=== PATIENT | female | born 1960 | race Caucasian/White ===

== ENCOUNTER 2022-09-27 12:17 | Emergency (ER) | payer OTHER ==
[~2022-09-27] VITALS: Ht 162.6 cm; Wt 64.0 kg
[2022-09-27] MEDS ORDERED: SODIUM CHLORIDE 0.9% 1,000 ML IV ONE (13:15)
[2022-09-27] MEDS ORDERED: ASPIRIN 81MG TABLET PO ONE (13:15)
[2022-09-27] MEDS ORDERED: ASPIRIN 81MG TABLET PO SCH (14:00)
[2022-09-27 14:07] LABS: BASOPHILS % 0.4 % (0.0-2.0); EOSINOPHILS % 1.7 % (0.0-5.0); HEMATOCRIT. 31.6 % (36.0-48.0); HEMOGLOBIN. 10.8 g/dL (12.0-16.0); LYMPHOCYTES % 18.6 % (20.0-50.0); MEAN CORPUSCULAR HEMOGLOBIN 29.7 pg (28.0-32.0); MEAN CORPUSCULAR VOLUME 87.2 fL (81.0-99.0); MEAN PLATELET VOLUME 7.7 fl (7.4-10.4); MONOCYTES % 11.9 % (2.0-8.0); NEUTROPHILS % 67.4 % (40.0-76.0); PLATELET 233 x1000/uL (130-400); RED BLOOD CELL COUNT 3.63 mill/uL (4.2-5.4); RED CELL DISTRIBUTION WIDTH 13.1 % (11.6-14.6)
[2022-09-27 14:15] LABS: CHLORIDE 108 mEq/L (98-107)
[2022-09-27 15:50] VITALS: BP 144/72
== END 2022-09-27 15:57 | disposition home or self-care (01) ==
LOC: ER 12:17
DX: R55 Syncope and collapse (principal)
CPT/HCPCS: 36415; 71045; 80053; 83880; 84484; 85025; 93005; 96360; 96361; 99285; J7030